=== PATIENT | male | born 1960 | race African-American/Black ===

== ENCOUNTER 2017-01-07 13:38 | Emergency (ER) | payer MEDICAID, OTHER ==
[~2017-01-07] VITALS: Ht 177.8 cm; Wt 76.0 kg
[2017-01-07] MEDS ORDERED: KEPP500 PO (13:54)
[2017-01-07] MEDS ORDERED: SODIUM CHLORIDE 0.9% 1,000 ML IV ONE (14:29)
[2017-01-07] MEDS ORDERED: LEVETIRACETAM 1,000 MG in SODIUM CHLORIDE 0.9% 100 ML IV ONE (14:45)
[2017-01-07 15:02] LABS: BASOPHILS % 0.3 % (0.0-2.0); EOSINOPHILS % 0.1 % (0.0-5.0); HEMATOCRIT. 40.6 % (42.0-52.0); HEMOGLOBIN. 13.5 g/dL (14.0-18.0); LYMPHOCYTES % 7.7 % (20.0-50.0); MEAN CORPUSCULAR HEMOGLOBIN 29.6 pg (28.0-32.0); MEAN CORPUSCULAR VOLUME 89.3 fL (80.0-94.0); MEAN PLATELET VOLUME 9.1 fl (7.4-10.4); MONOCYTES % 9.6 % (2.0-8.0); NEUTROPHILS % 82.3 % (40.0-76.0); PLATELET 295 x1000/uL (130-400); RED BLOOD CELL COUNT 4.55 mill/uL (4.7-6.1); RED CELL DISTRIBUTION WIDTH 14.1 % (11.6-14.6)
[2017-01-07 15:17] LABS: CARBON DIOXIDE 27 mEq/L (21-32); CHLORIDE 101 mEq/L (98-107); ETHANOL BLOOD < 10 mg/dL
[2017-01-07] MEDS ORDERED: PHENYTOIN SODIUM 1,000 MG in SODIUM CHLORIDE 0.9% 100 ML IV ONE (17:15)
[2017-01-07] MEDS ORDERED: LORAZEPAM 1MG TABLET PO ONE (17:15)
[2017-01-07 19:32] LABS: CLARITY URINE CLEAR (CLEAR); COLOR URINE YELLOW (YELLOW); GLUCOSE URINE NEGATIVE (NEGATIVE); KETONES URINE TRACE (NEGATIVE); LEUKOCYTE ESTERASE URINE NEGATIVE (NEGATIVE); NITRITE URINE NEGATIVE (NEGATIVE); OCCULT BLOOD URINE NEGATIVE (NEGATIVE); PH URINE 5.5 (4.5-8.0); PROTEIN URINE NEGATIVE (NEGATIVE); SPECIFIC GRAVITY URINE 1.015 (1.005-1.030); UROBILINOGEN URINE 0.2 E.U./dL (0.2-1.0)
[2017-01-07 19:45] LABS: *AMPHETAMINES SCREEN URINE NEGATIVE (NEGATIVE); *BARBITURATES SCREEN URINE NEGATIVE (NEGATIVE); *BENZODIAZEPINES SCREEN URINE NEGATIVE (NEGATIVE); *COCAINE SCREEN URINE PRESUMTIVE POSITIVE (NEGATIVE); CANNABINOID URINE SCREEN PRESUMTIVE POSITIVE (NEGATIVE); METHADONE URINE SCREEN NEGATIVE (NEGATIVE); OPIATES URINE SCREEN NEGATIVE (NEGATIVE); PHENCYCLIDINE URINE SCREEN NEGATIVE (NEGATIVE)
[2017-01-08 01:20] VITALS: BP 140/79
[2017-01-08] MEDS ORDERED: LEVE1000 PO (15:18)
[2017-01-08] MEDS ORDERED: PHEN100C4 PO (15:18)
[2017-01-08] MEDS ORDERED: RIVAROXABAN 15 MG TABLET PO SCH (17:00)
[2017-01-09] MEDS ORDERED: AMLO2.5T45 PO (10:12)
[2017-01-09] MEDS ORDERED: MELO-106 PO (10:12)
[2017-01-09] MEDS ORDERED: PHEN200C5 PO (10:12)
[2017-01-09] MEDS ORDERED: MIRT45TA4 PO (10:12)
[2017-01-09] MEDS ORDERED: ATOR40TA70 PO (10:12)
[2017-01-09] MEDS ORDERED: BUSP10TA3 PO (10:12)
[2017-01-10] MEDS ORDERED: KEPPSOL PO (13:25)
[2017-01-10] MEDS ORDERED: FOLI-43 PO (13:25)
[2017-01-10] MEDS ORDERED: LIP40 PO (13:25)
[2017-01-10] MEDS ORDERED: PHEN100C4 PO (13:25)
[2017-01-10] MEDS ORDERED: THIA100T72 PO (13:25)
[2017-01-10] MEDS ORDERED: ASPI-1158 PO (13:25)
[2017-01-10] MEDS ORDERED: AMLO5TAB88 PO (13:25)
[2017-01-10] MEDS ORDERED: Multivitamins,Ther W-Minerals PO (13:25)
== END 2017-01-08 03:36 | disposition home or self-care (01) ==
LOC: EDBD 13:38 → ER 13:50
DX: G40.909 Epilepsy, unspecified, not intractable, without status epilepticus (principal)
CPT/HCPCS: 36415; 80053; 80185; 80305; 81003; 85025; 96361; 96365; 96366; 96367; 99285; G0482; J1165; J1953; J7030; Z7610; J7050

== ENCOUNTER 2017-01-08 03:32 | Inpatient (IN) | payer OTHER ==
[~2017-01-08] VITALS: Ht 180.3 cm; Wt 74.8 kg
[~2017-01-08 03:32] MED LIST: KEPP500 PO
[2017-01-08] MEDS ORDERED: SODIUM CHLORIDE 0.9% 1,000 ML IV ONE (07:00)
[2017-01-08] MEDS ORDERED: MECLIZINE 25MG TABLET PO ONE (07:00)
[2017-01-08 07:44] LABS: BASOPHILS % 0.3 % (0.0-2.0); EOSINOPHILS % 0.6 % (0.0-5.0); HEMOGLOBIN. 14.2 g/dL (14.0-18.0); LYMPHOCYTES % 11.6 % (20.0-50.0); MEAN CORPUSCULAR HEMOGLOBIN 30.7 pg (28.0-32.0); MEAN CORPUSCULAR VOLUME 88.6 fL (80.0-94.0); MONOCYTES % 8.6 % (2.0-8.0); NEUTROPHILS % 78.9 % (40.0-76.0); PLATELET 281 x1000/uL (130-400); RED BLOOD CELL COUNT 4.63 mill/uL (4.7-6.1); RED CELL DISTRIBUTION WIDTH 14.4 % (11.6-14.6)
[2017-01-08 07:58] LABS: CARBON DIOXIDE 26 mEq/L (21-32); CHLORIDE 102 mEq/L (98-107); TROPONIN I 0.04 ng/mL (0.00-0.04)
[2017-01-08] MEDS ORDERED: LEVETIRACETAM 500MG/5ML CUP PO ONE (08:45)
[2017-01-08] MEDS ORDERED: LORAZEPAM 2MG/ML CPJ IV PRN (12:45)
[2017-01-08] MEDS ORDERED: HYDROCODONE/ACETAMINOPHEN 5/325MG TABLET PO PRN (12:45)
[2017-01-08] MEDS ORDERED: CLONIDINE 0.1MG TABLET PO PRN (12:45)
[2017-01-08] MEDS ORDERED: DIPHENHYDRAMINE 50MG/ML VIAL IV PRN (12:45)
[2017-01-08] MEDS ORDERED: ONDANSETRON HCL 4MG/2ML VIAL IV PRN (12:45)
[2017-01-08 13:41] VITALS: BP 140/85
[2017-01-08] MEDS ORDERED: LEVE1000 PO (15:18)
[2017-01-08] MEDS ORDERED: PHEN100C4 PO (15:18)
[2017-01-08] MEDS: AMLODIPINE 5MG TABLET PO SCH ×2 (15:29→20:40)
[2017-01-08] MEDS: MULTIVITAMINS,THER W-MINERALS TABLET PO SCH (15:29)
[2017-01-08] MEDS: ASPIRIN 81MG EC TABLET PO SCH (15:29)
[2017-01-08] MEDS: FOLIC ACID 1MG TABLET PO SCH (15:29)
[2017-01-08] MEDS: THIAMINE HCL 100MG TABLET PO SCH (16:53)
[2017-01-08 18:57] LABS: ETHANOL BLOOD < 10 mg/dL; TROPONIN I 0.02 ng/mL (0.00-0.04)
[2017-01-08] MEDS: ACETAMINOPHEN 325MG TABLET PO PRN (19:44)
[2017-01-08 20:00] VITALS: BP 123/87
[2017-01-08] MEDS: LEVETIRACETAM 500MG/5ML CUP PO SCH (20:40)
[2017-01-08] MEDS ORDERED: PHENYTOIN SODIUM EXTENDED 100MG CAPSULE PO SCH (21:00)
[2017-01-08 23:55] LABS: CLARITY URINE CLEAR (CLEAR); COLOR URINE DARK YELLOW (YELLOW); GLUCOSE URINE NEGATIVE (NEGATIVE); KETONES URINE TRACE (NEGATIVE); LEUKOCYTE ESTERASE URINE TRACE (NEGATIVE); NITRITE URINE NEGATIVE (NEGATIVE); OCCULT BLOOD URINE NEGATIVE (NEGATIVE); PROTEIN URINE NEGATIVE (NEGATIVE); SPECIFIC GRAVITY URINE 1.026 (1.005-1.030)
[2017-01-09] VITALS (8 sets, daily range): BP systolic 108–135; BP diastolic 74–94
[2017-01-09 00:28] LABS: *AMPHETAMINES SCREEN URINE NEGATIVE (NEGATIVE); *BARBITURATES SCREEN URINE NEGATIVE (NEGATIVE); *BENZODIAZEPINES SCREEN URINE NEGATIVE (NEGATIVE); *COCAINE SCREEN URINE PRESUMTIVE POSITIVE (NEGATIVE); CANNABINOID URINE SCREEN PRESUMTIVE POSITIVE (NEGATIVE); METHADONE URINE SCREEN NEGATIVE (NEGATIVE); OPIATES URINE SCREEN NEGATIVE (NEGATIVE); PHENCYCLIDINE URINE SCREEN NEGATIVE (NEGATIVE)
[2017-01-09] MEDS: ACETAMINOPHEN 325MG TABLET PO PRN (04:34)
[2017-01-09 07:04] LABS: BASOPHILS % 0.3 % (0.0-2.0); EOSINOPHILS % 0.5 % (0.0-5.0); HEMATOCRIT. 39.8 % (42.0-52.0); HEMOGLOBIN. 13.2 g/dL (14.0-18.0); LYMPHOCYTES % 14.1 % (20.0-50.0); MEAN CORPUSCULAR HEMOGLOBIN 29.7 pg (28.0-32.0); MEAN CORPUSCULAR VOLUME 89.4 fL (80.0-94.0); MONOCYTES % 7.9 % (2.0-8.0); NEUTROPHILS % 77.2 % (40.0-76.0); PLATELET 235 x1000/uL (130-400); RED BLOOD CELL COUNT 4.45 mill/uL (4.7-6.1); RED CELL DISTRIBUTION WIDTH 14.2 % (11.6-14.6)
[2017-01-09 07:43] LABS: CARBON DIOXIDE 26 mEq/L (21-32); CHLORIDE 101 mEq/L (98-107); CREATINE KINASE 273 IU/L (39-308); CREATINE KINASE MB FRACTION 2.2 ng/mL (0.5-3.6); HDL CHOLESTEROL 125 mg/dL (40-59); LDL CHOLESTEROL 60 mg/dL (5-100); TROPONIN I 0.02 ng/mL (0.00-0.04)
[2017-01-09] MEDS ORDERED: PNEUMOCOCCAL 23-VAL P-SAC VAC 0.5 ML IM ONE (08:00)
[2017-01-09] MEDS: FOLIC ACID 1MG TABLET PO SCH (08:50)
[2017-01-09] MEDS: THIAMINE HCL 100MG TABLET PO SCH (08:50)
[2017-01-09] MEDS: ASPIRIN 81MG EC TABLET PO SCH (08:50)
[2017-01-09] MEDS: MULTIVITAMINS,THER W-MINERALS TABLET PO SCH (08:50)
[2017-01-09] MEDS: LEVETIRACETAM 500MG/5ML CUP PO SCH ×2 (08:50→20:57)
[2017-01-09] MEDS: AMLODIPINE 5MG TABLET PO SCH ×2 (08:51→20:58)
[2017-01-09] MEDS: NICOTINE 7MG PATCH TD SCH (08:56)
[2017-01-09] MEDS ORDERED: ATOR40TA70 PO (10:12)
[2017-01-09] MEDS ORDERED: MELO-106 PO (10:12)
[2017-01-09] MEDS ORDERED: PHEN200C5 PO (10:12)
[2017-01-09] MEDS ORDERED: AMLO2.5T45 PO (10:12)
[2017-01-09] MEDS ORDERED: BUSP10TA3 PO (10:12)
[2017-01-09] MEDS ORDERED: MIRT45TA4 PO (10:12)
[2017-01-09] MEDS ORDERED: POTASSIUM CHLORIDE 20MEQ TABLET SR PO NR (12:00)
[2017-01-09] MEDS ORDERED: ASPIRIN 81MG EC TABLET PO SCH (14:45)
[2017-01-09] MEDS: MELOXICAM 7.5MG TABLET PO SCH (16:07)
[2017-01-09] MEDS: BUSPIRONE HCL 10MG TABLET PO SCH (16:07)
[2017-01-09] MEDS: PHENYTOIN SODIUM EXTENDED 100MG CAPSULE PO SCH (16:07)
[2017-01-09] MEDS ORDERED: MELOXICAM 7.5 MG PO SCH (17:00)
[2017-01-09] MEDS ORDERED: MIRTAZAPINE 30MG TABLET PO SCH (21:00)
[2017-01-09] MEDS ORDERED: PHENYTOIN SODIUM EXTENDED 100MG CAPSULE PO SCH (21:00)
[2017-01-09] MEDS ORDERED: MEDICATION NOT ON FORMULARY EA (Mirtazapine 1 TAB) PO SCH (21:00)
[2017-01-09] MEDS ORDERED: PHENYTOIN SODIUM 400 MG PO SCH (21:00)
[2017-01-09] MEDS ORDERED: ATORVASTATIN CALCIUM 40MG TABLET PO SCH (21:00)
[2017-01-10] VITALS: BP 129/90
[2017-01-10 04:00] VITALS: BP 121/76
[2017-01-10 07:52] LABS: BASOPHILS % 0.4 % (0.0-2.0); HEMATOCRIT. 37.7 % (42.0-52.0); HEMOGLOBIN. 12.6 g/dL (14.0-18.0); MEAN CORPUSCULAR HEMOGLOBIN 30.3 pg (28.0-32.0); MEAN CORPUSCULAR VOLUME 90.3 fL (80.0-94.0); MEAN PLATELET VOLUME 9.5 fl (7.4-10.4); NEUTROPHILS % 71.6 % (40.0-76.0); PLATELET 238 x1000/uL (130-400); RED BLOOD CELL COUNT 4.17 mill/uL (4.7-6.1)
[2017-01-10 08:00] VITALS: BP_SYST 109; BP_SYST 111; BP_SYST 128; BP_DIAS 76; BP_DIAS 79; BP_DIAS 89
[2017-01-10 08:21] LABS: CARBON DIOXIDE 25 mEq/L (21-32); CHLORIDE 103 mEq/L (98-107); TROPONIN I < 0.02 ng/mL (0.00-0.04)
[2017-01-10] MEDS: MULTIVITAMINS,THER W-MINERALS TABLET PO SCH (09:42)
[2017-01-10] MEDS: LEVETIRACETAM 500MG/5ML CUP PO SCH (09:42)
[2017-01-10] MEDS: PHENYTOIN SODIUM EXTENDED 100MG CAPSULE PO SCH (09:42)
[2017-01-10] MEDS: NICOTINE 7MG PATCH TD SCH (09:42)
[2017-01-10] MEDS: ASPIRIN 81MG EC TABLET PO SCH (09:43)
[2017-01-10] MEDS: BUSPIRONE HCL 10MG TABLET PO SCH (09:43)
[2017-01-10] MEDS: MELOXICAM 7.5MG TABLET PO SCH (09:43)
[2017-01-10] MEDS: FOLIC ACID 1MG TABLET PO SCH (09:43)
[2017-01-10] MEDS: THIAMINE HCL 100MG TABLET PO SCH (09:43)
[2017-01-10] MEDS: AMLODIPINE 5MG TABLET PO SCH (09:44)
[2017-01-10 12:00] VITALS: BP 130/90
[2017-01-10] MEDS ORDERED: Multivitamins,Ther W-Minerals PO (13:25)
[2017-01-10] MEDS ORDERED: ASPI-1158 PO (13:25)
[2017-01-10] MEDS ORDERED: THIA100T72 PO (13:25)
[2017-01-10] MEDS ORDERED: FOLI-43 PO (13:25)
[2017-01-10] MEDS ORDERED: KEPPSOL PO (13:25)
[2017-01-10] MEDS ORDERED: PHEN100C4 PO (13:25)
[2017-01-10] MEDS ORDERED: LIP40 PO (13:25)
[2017-01-10] MEDS ORDERED: AMLO5TAB88 PO (13:25)
[2017-01-10 14:16] VITALS: BP 130/90
== END 2017-01-10 14:55 | disposition home or self-care (01) | DRG 53 ==
LOC: ER 03:32 → 5WST 09:37 → ENRESERV 11:57
PROVIDERS: ADMIT Internal Medicine; ATTEND Internal Medicine
DX: G40.409 Other generalized epilepsy and epileptic syndromes, not intractable, without status epilepticus (principal); I11.9 Hypertensive heart disease without heart failure; E83.51 Hypocalcemia; R07.89 Other chest pain; R73.9 Hyperglycemia, unspecified; E87.6 Hypokalemia; F14.10 Cocaine abuse, uncomplicated; Z82.49 Family history of ischemic heart disease and other diseases of the circulatory system; Z87.891 Personal history of nicotine dependence; Z79.899 Other long term (current) drug therapy
CPT/HCPCS: 36415; 70450; 70551; 71010; 80048; 80053; 80061; 80185; 80305; 81001; 82542; 82550; 82553; 83036; 83735; 84484; 85025; 85379; 87040; 87086; 90732; 93005; 93306; 93880; 96360; 96361; 99285; G0482; J7030; J8597